=== PATIENT | male | born 1980 | race African-American/Black ===

== ENCOUNTER 2019-10-08 11:18 | Emergency (ER) | payer OTHER ==
[~2019-10-08] VITALS: Ht 185.4 cm; Wt 131.5 kg
--- NOTE | 2019-10-08 11:30 | NUR ---
PATIENT CAME IN TO THE ER C/O HEADACHES X "COUPLE OF DAYS." CONCERN ABOUT HIGH BLOOD PRESSURE. ON ROOM AIR, BREATHING EVENLY AND UNLABORED. CONNECTED TO THE MONITOR AND PULSE OX. KEPT COMFORTABLE, WILL CONTINUE TO MONITOR ACCORDINGLY.
[2019-10-08] MEDS ORDERED: ACETAMINOPHEN ES 500 MG TABLET ONE (11:51)
[2019-10-08] MEDS ORDERED: ACETAMINOPHEN ES 500 MG TABLET PO ONE (12:00)
[2019-10-08 13:11] VITALS: BP 140/71
--- NOTE | 2019-10-08 13:12 | NUR ---
Patient discharged to home in stable condition. Written and verbal after care instructions given. Patient verbalizes understanding of instruction.
== END 2019-10-08 13:12 | disposition home or self-care (01) ==
LOC: ER 11:18
DX: G44.209 Tension-type headache, unspecified, not intractable (principal)

== ENCOUNTER → 2021-04-28 | Emergency (ER) | payer OTHER ==
[~2021-04-28] VITALS: Ht 188 cm; Wt 131.5 kg
[2021-04-28 12:24] VITALS: BP 126/69
--- NOTE | 2021-04-28 12:49 | NUR ---
Patient discharged to home in stable condition. Written and verbal after care instructions given. Patient verbalizes understanding of instruction.
--- NOTE | 2021-04-28 12:55 | NUR ---
[facility]
== END | disposition home or self-care (01) ==
LOC: ER 13:05
DX: I10 Essential (primary) hypertension (principal); F17.210 Nicotine dependence, cigarettes, uncomplicated

== ENCOUNTER 2023-12-20 17:04 | Emergency (ER) | payer MEDICAID, OTHER ==
[~2023-12-20] VITALS: Ht 188 cm; Wt 127.0 kg
[2023-12-20 18:05] VITALS: TEMP 98.6
[2023-12-20] MEDS ORDERED: BENZONATATE 100 MG CAPSULE PO ONE (19:24)
[2023-12-20] MEDS: BENZONATATE 100 MG CAPSULE PO PRN (19:26)
--- NOTE | 2023-12-20 19:26 | NUR ---
C/C ough and congestion x 1 month. stable vss. Tolerating R/A well with no resp distress.
--- NOTE | 2023-12-20 19:28 | NUR ---
arrt technologist at pt's bedside
[2023-12-20] MEDS ORDERED: BENZ-13 PO (20:21)
[2023-12-20] MEDS ORDERED: PSEU120T83 PO (20:21)
[2023-12-20] MEDS ORDERED: GUAI120013 PO (20:21)
[2023-12-20 21:08] VITALS: BP 116/70; O2SAT 99
--- NOTE | 2023-12-20 21:08 | NUR ---
Patient discharged to home in stable condition. Written and verbal after care instructions given. Patient verbalizes understanding of instruction.
== END 2023-12-20 21:09 | disposition home or self-care (01) ==
LOC: ER 17:07
DX: J06.9 Acute upper respiratory infection, unspecified (principal); R05.9 Cough, unspecified; R09.81 Nasal congestion; F17.210 Nicotine dependence, cigarettes, uncomplicated; Z20.822 Contact with and (suspected) exposure to COVID-19
CPT/HCPCS: 71045-TC